=== PATIENT | male | born 1955 | race African-American/Black ===

== ENCOUNTER 2025-03-20 16:25 | Emergency (ER) | payer MEDICARE ==
[~2025-03-20] VITALS: Ht 175.3 cm; Wt 174.6 kg
[2025-03-20 17:12] VITALS: TEMP 98.7
[2025-03-20 19:32] LABS: BASOPHILS % 0.3 % (0.0-1.0); EOSINOPHILS % 1.9 % (0.0-6.0); LYMPHOCYTES % 17.2 % (18.0-39.1); MONOCYTES % 9.5 % (4.4-11.3); NEUTROPHILS % 70.8 % (38.7-80.0); RED CELL DISTRIBUTION WIDTH 14.5 % (11.7-14.4)
[2025-03-20 19:41] LABS: LEUKOCYTE ESTERASE ,URINE NEGATIVE (NEGATIVE); PROTEIN,URINE DIPSTICK >=300 (NEGATIVE)
[2025-03-20 19:42] LABS: URINE UROBILINOGEN 1 mg/dL (0.2 - 1)
[2025-03-20 19:55] LABS: EST GLOMERULAR FILTRATION RATE 60.0 ML/MIN (>=60)
[2025-03-20] MEDS ORDERED: IOPAMIDOL 370 MG/ML 100 ML INFUS..BTL INJ ONE (20:02)
[2025-03-20] MEDS ORDERED: SODIUM CHLORIDE 0.9% 250ML 250 ML ONE (20:02)
[2025-03-20 23:03] VITALS: PULSE 77; RESP 19
[2025-03-20 23:36] VITALS: BP 146/75; PULSE 83; RESP 16; TEMP 98.4; O2SAT 98
== END 2025-03-20 23:37 | disposition home or self-care (01) ==
LOC: ER 17:59
DX: R31.9 Hematuria, unspecified (principal); I10 Essential (primary) hypertension; E11.9 Type 2 diabetes mellitus without complications; E78.5 Hyperlipidemia, unspecified
CPT/HCPCS: 36415; 74178; 80053; 81001; 85025; 87086; 99284; J7050; Q9967